=== PATIENT | female | born 1970 | race Caucasian/White ===

== ENCOUNTER 2020-07-09 16:02 | Emergency (ER) | payer MEDICAID, SELFPAY ==
[2020-07-09 16:22] VITALS: BP 142/97; PULSE 96; RESP 16; TEMP 36.5; O2SAT 95
--- NOTE | 2020-07-09 16:31 | NUR.NOTE ---
Nursing Note: PT reports that she just started taking insulin but does not know her dosages.
--- NOTE | 2020-07-09 16:39 | ED.GENADUL_ITS ---
Discharge Plan Disposition Patient Disposition: HOME Condition: Fair Discharge Details Clinical Impression: Cellulitis of hand Primary Care Provider: Perico Adamson ED Provider: Marguerite Hollingsworth Home Meds and New Rx's Prescriptions: New cephalexin [Keflex] 500 mg capsule 500 mg PO BID Qty: 14 RF: 0 sulfamethoxazole-trimethoprim [Bactrim DS] 800-160 mg tablet 1 tab PO BID Qty: 14 RF: 0 Continued ibuprofen 800 mg Tablet 800 mg PO DAILY RF: 0 clonazepam 1 mg Tablet 1 mg PO DAILY RF: 0 omeprazole 40 mg Capsule,Delayed Release(Dr/Ec) 40 mg PO DAILY RF: 0 lithium carbonate 300 mg Capsule 900 mg PO DAILY RF: 0 aripiprazole [Abilify] 10 mg Tablet 10 mg PO DAILY RF: 0 Victoza 3-Jax 0.6 mg/0.1 mL (18 mg/3 mL) Pen Injector SUBCUT RF: 0 Discharge Instructions Instructions: Cellulitis (ED) Additional Instructions: I am concerned that you have a skin infection. Please take your antibiotics as prescribed. Even if symptoms improve, please take the entire course. You may use Tylenol and/or ibuprofen as needed for discomfort. Please take as directed on the bottles. I would like you to follow-up with your primary care in the next 48 to 72 hours. Please call primary care tomorrow to schedule follow-up appointment. You may continue use the brace to help with discomfort. Elevate your hand to help with swelling. Please wear gloves when you are at work. Wash with soap and water. If you develop fever/chills, spreading of the redness outside of the marked areas, increased pain or the new/worsening symptoms please seek care urgently once again. Referrals: Perico Adamson [Primary Care Provider] - Discharge Data Discharge Date/Time-TO BE ENTERED AT DEPARTURE: 07/09/20 19:15 Medical Decision Making Patient is a 50-year-old female presented with chief complaint of left hand pain. She reports that pain began approximately 3 weeks ago and is progressively been increasing. She states that she noted some swelling and redness to the thumb and index finger. Patient is right-hand dominant. She denies any trauma. 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 Reports up-to-date on i mmunizations, tetanus is up-to-date. On exam, she appears nontoxic. Patient is a fairly poor historian. Exam of the left hand shows erythema and warm to the thumb and index finger really over the dorsal aspect of the left hand. Fairly ill-defined borders. Not appreciate this is much on the palmar side. She has a has swelling which is maximal over the MCP and PIP joint of the left index finger. I am able to passively move all of her joints well without any evidence of discomfort or tenderness involvement. She does have a small 5 mm laceration to the distal aspect of the left thumb as well as a healing pinpoint scab over the dorsal side of the PIP joint of the left index finger. As this is an atraumatic onset, I am primarily concerned for infection. At this time, I do not objectively note any evidence to suggest bony or tenderness or other deep space infection. Two-point discrimination is intact.. Primarily concern for cellulitis. She has been denying any fevers. However, given its location and the patient's poor history, I do feel that labs and imaging would be appropriate. I discussed this plan with the patient . X-ray reviewed by radiologist FINDINGS: Bones/joints: Arthrosis is seen as loss of joint space and marginal osteophyte formation involving the left thumb carpometacarpal articulation and multiple interphalangeal articulations. No acute fracture detected. Soft tissues: Mild suspected soft tissue swelling seen diffusely throughout the left hand. 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 Patient has a leukocytosis with a white count of 14. Glucose is 176, patient reports baseline for her. Her ESR and CRP are normal. Patient will be started on antibiotics. I am concerned for potential MRSA risk factors the patient does have a history of IVDU. Will cover as such. I encourage close follow-up with her primary care and have asked that she have this reassessed in the next few days. Strict return precautions were given. Advised that she elevate. We will place her in a thumb spica splint to help with discomfort. All of her questions and concerns were addressed and she is in agreement this plan. HPI General Mode of arrival: ambulatory . Date/Time Provider Initiated Documentation: 07/09/20 16:06 . Limitations to Documentation: no limitations . Information obtained by: patient and RN notes reviewed . History of Present Illness 50 year old F presents to the emergency department with the chief complaint of left hand pain, swelling, erythema, described as severe, with intensity rated at 8. Quality is described as aching, and is localized to the left and upper extremity. Patient reports no radiation. Patient started experiencing this week(s) (3) and it has been constant. Immobilization improves symptom(s), Movement worsens symptoms . Patient notes no other symptoms.. Patient did receive the following treatments prior to arrival, none Related Data Home Medications Medication Instructions Recorded Confirmed Victoza 3-Jax mg SUBCUT 07/09/20 aripiprazole [Abilify] 10 mg PO DAILY 07/09/20 07/09/20 cephalexin [Keflex] 500 mg PO BID #14 cap 07/09/20 clonazepam 1 mg PO DAILY 07/09/20 07/09/20 ibuprofen 800 mg PO DAILY 07/09/20 07/09/20 lithium carbonate 900 mg PO DAILY 07/09/20 07/09/20 omeprazole 40 mg PO DAILY 07/09/20 07/09/20 sulfamethoxazole-trimethoprim 1 tab PO BID #14 tab 07/09/20 [Bactrim DS] Previous Rx's Medication Instructions Recorded cephalexin [Keflex] 500 mg PO BID #14 cap 07/09/20 sulfamethoxazole-trimethoprim 1 tab PO BID #14 tab 07/09/20 [Bactrim DS] Allergies Allergy/AdvReac Type Severity Reaction Status Date / Time olanzapine [From Zyprexa] Allergy Unverified 07/09/20 16:26 paroxetine [From Paxil] Allergy Unverified 07/09/20 16:26 General Stated Complaint: Orthopedic BERNADINE: 4 Review of Systems Constitutional Constitutional: Reports as per HPI, Denies chills, Denies fever(s), Denies headache(s) and Denies weakness ENT Ears, Nose, Mouth, and Throat: Denies headache(s) Cardiovascular Cardiovascular: Reports as per HPI Respiratory Respiratory: Reports as per HPI and Denies cough Musculoskeletal Musculoskeletal: Reports as per HPI and Reports tingling Integumentary/Breasts Skin/Breast: Reports as per HPI, Reports erythema, Denies rash, Reports skin pain, Reports skin swelling and Reports wounds (has small laceration to left thumb, puncture to left index) Neurologic Neurologic: Reports as per HPI, Denies headache(s), Reports tingling, Reports paresthesias and Denies weakness [facility] Social History (Reviewed 07/09/20 @ 17:28 by HAYES Stearns Smoking/Tobacco Use Status: Current every day Tobacco Type: cigarettes Years smoked: 15 Alcohol Intake: never Drug use: Socially Substance use type: marijuana Do you feel safe at home: Yes Do you feel safe in your relationship?: Yes Exam Const General: cooperative, healthy appearing, comfortable, no acute distress, well developed and well groomed Nutritional Appearance: well nourished and obese Orientation: alert and awake Resp Effort & Inspection: normal respiratory effort, able to speak in complete sentences and no respiratory distress Cardio Rate: regular rate Rhythm: regular rhythm Skin General skin exam: erythema Trauma: laceration and puncture Neuro General: patient alert and patient awake Cognition: normal cognition Speech: speech normal Gait: normal gait Motor: muscle tone normal throughout Sensory Exam: no sensory deficits noted Extrem Hand/finger images: 1. area of erythema and swelling. Pain with palpation. Passive ROM allowed, limited full flexion secondary to swelling. No pain with axial thumb loading. Psych Appearance: grossly normal and well kempt Mental Status: mental status grossly normal Speech and Movement: speech and movement normal Course Vital Signs Vital signs: Vital Signs Temperature 36.5 C 07/09/20 16:22 Pulse 96 H 07/09/20 16:22 Respiratory Rate 16 07/09/20 16:22 Blood Pressure 142/97 H 07/09/20 16:22 Pulse Oximetry 95 07/09/20 16:22 Temperature 36.5 C 07/09/20 16:22 Temperature Source Tympanic 07/09/20 16:22 Pulse 96 H 07/09/20 16:22 Respiratory Rate 16 07/09/20 16:22 Respiratory Effort Non-Labored 07/09/20 16:24 Blood Pressure 142/97 H 07/09/20 16:22 Blood Pressure Position Sitting 07/09/20 16:22 Pulse Oximetry 95 07/09/20 16:22 Oxygen Delivery Method Room Air 07/09/20 16:22 Oxygen Flow Rate 0 07/09/20 16:22 Pain Level 8 07/09/20 16:22
--- NOTE | 2020-07-09 17:00 | DI.RAD_ITS ---
EXAM: XR HAND LT COMPLETE CLINICAL HISTORY: atraumatic swelling, erythma to index and thumb. TECHNIQUE: 2D digital imaging was performed. COMPARISON: No exams were available for comparison FINDINGS: BONES: No acute fracture is present. No bony destructive lesion is seen. JOINTS: No dislocation present. Degenerative changes are seen in the hand characterized by joint spac e narrowing and periarticular osteophytes. SOFT TISSUE: Mild diffuse soft tissue swelling of the hand. IMPRESSION: 1. No acute fracture or dislocation. 2. Degenerative changes of the hand. DATA REPOSITORY: RADIATION DOSE DELIVERED:
[2020-07-09 17:45] LABS: Abs Immature Grans 0.05 10^3/uL (0.0-0.06); Absolute Basophil Count 0.08 10^3/uL (0.0-0.2); Absolute Eosinophil Count 0.31 10^3/uL (0.0-0.7); Absolute Lymphocyte Count 3.55 10^3/uL (1.2-3.4); Absolute Monocyte Count 0.73 10^3/uL (0.1-0.8); Basophils % 0.6; Eosinophils % 2.2; HCT 40.3 % (36.0-46.0); HGB 12.9 g/dL (11.2-15.7); Immature Grans % 0.4; Lymphocytes % 25.2; MCH 27.7 pg (27.0-33.0); MCV 86.7 fL (80-95); MPV 10.3 fL (8.0-11.0); Monocytes % 5.2; Neutrophils % 66.4; Nucleated RBC 0 %; Platelet Count 280 10^3/uL (130-400); RBC 4.65 10^6/uL (3.93-5.22); RDW 13.3 % (11.7-14.6); WBC 14.09 10^3/uL (4.4-10.8)
[2020-07-09 17:55] LABS: Absolute Neutrophil Count 9.36 10^3/uL (1.2-6.7)
[2020-07-09 18:08] VITALS: BP 125/78; PULSE 80; RESP 15; O2SAT 95
[2020-07-09 18:09] LABS: ALT 22 U/L (14-59); Albumin 3.8 g/dL (3.4-5.0); Alkaline Phosphatase 109 U/L (46-116); Anion Gap 10.7 mmol/L (3-11); BUN 11 mg/dL (7-18); Bilirubin, Total 0.2 mg/dL (0.2-1.0); C-Reactive Protein 0.15 mg/dL (0.0-0.3); CO2 23.3 mmol/L (21.0-32.0); CREATININE 0.82 mg/dL (0.55-1.02); Calcium 9.2 mg/dL (8.5-10.1); Chloride 102 mmol/L (98-107); Glucose 173 mg/dL (74-106); Sodium 136 mmol/L (136-145); Total Protein 7.4 g/dL (6.4-8.2)
--- NOTE | 2020-07-09 18:17 | DI.VRAD_ITS ---
PROCEDURE INFORMATION: Exam: XR Left Hand Exam date and time: 07/09/2020 5:53 PM Age: 50 years old Clinical indication: Swelling; Hand; Left TECHNIQUE: Imaging protocol: XR Left hand. Views: 3 or more views. COMPARISON: No relevant prior studies available. FINDINGS: Bones/joints: Arthrosis is seen as loss of joint space and marginal osteophyte formation involving the left thumb carpometacarpal articulation and multiple interphalangeal articulations. No acute fracture detected. Soft tissues: Mild suspected soft tissue swelling seen diffusely throughout the left hand. 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 Dictated and Authenticated by: Brian Mccray MD. Ordering:DIMPLE Everett MD
[2020-07-09 18:22] LABS: AST < 5 U/L (15-37)
[2020-07-09 18:52] LABS: ESR 11 mm/hr (0-20)
[2020-07-09 19:17] VITALS: BP 128/85; PULSE 81; RESP 16; O2SAT 95
== END 2020-07-09 19:15 | disposition home or self-care (01) ==
PROVIDERS: Emergency Provider Physician Assistant; PCP Family Medicine
DX: L03.114 Cellulitis of left upper limb (principal)
CPT/HCPCS: 29125; 36415; 80053; 85027; 85652; 99284; 73130; 85025; 86140; 99283; L3807

== ENCOUNTER 2021-05-19 13:55 | Outpatient (CLI) | payer MEDICAID, SELFPAY ==
--- NOTE | 2021-05-19 11:15 | DI.RAD_ITS ---
Exam(s) XR FOOT RT LIMITED EXAM: XR FOOT RT LIMITED CLINICAL HISTORY: right foot pain. TECHNIQUE: 2D digital imaging was performed. Weightbearing lateral view was performed. COMPARISON: CR XR ANKLE COMPLETE MIN 3V RT from 03/13/2021 CR XR ANKLE COMPLETE MIN 3V RT from 03/13/2021 FINDINGS: There is a small plantar calcaneal spur. There degenerative changes greatest at the tarsal metatarsa l regions. The plantar arch is maintained. IMPRESSION: Degenerative changes and heel spur. DATA REPOSITORY: RADIATION DOSE DELIVERED:
== END 2021-05-19 13:56 | disposition home or self-care (01) ==
LOC: DIORS 13:55
PROVIDERS: PCP Family Medicine; Referring Provider Family Medicine; Visit Provider Physician Assistant
DX: M19.071 Primary osteoarthritis, right ankle and foot (principal); M77.31 Calcaneal spur, right foot
CPT/HCPCS: 73620

== ENCOUNTER 2021-07-22 00:50 | Outpatient (CLI) | payer MEDICAID, SELFPAY ==
--- NOTE | 2021-07-22 07:30 | DI.MRI_ITS ---
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 COMPARISON: CR,XR XR HAND LT COMPLETE from 07/09/2020 FINDINGS: MARROW/ARTICULATIONS:There are no fractures but there is prominent bone contusion-bone edema evident in the proximal half of the thumb metacarpal as well as the trapezium and there are significant degen erative changes in this joint including subarticular edema and multiple small degenerative subarticul ar cysts as well as marginal osteophytes. No true erosions evident. With respect of the metacarpophalangeal joint of the thumb, there is some mild degenerative change. N o evidence of ulnar collateral ligament tear. There is some narrowing of the medial aspect of the sheri nt with mild bone edema in the medial base of the proximal phalanx. There is no abnormal intraosseous signal evident within the trapezoid and 2nd metacarpal carpal nor i n the capitate and scaphoid-lunate. MUSCLES/TENDONS: no evidence of tendon tears or tenosynovitis of the flexor and extensor tendons of t he thumb. EXTRAMUSCULAR SOFT TISSUES: Small ganglia on noted on the opposite-medial aspect of hand-wrist adjace nt to the hamate. OTHER: None. IMPRESSION: 1. Significant osteoarthritic degenerative changes at the 1st carpometacarpal joint prominent subarti cular bone edema both sides the joint and degenerative subarticular cysts. No prominent joint effusio n nor para-articular ganglion at this level. 2. Mild degenerative changes also noted at the metacarpophalangeal joint of the thumb but without sig nificant bone edema and no evidence of ulnar collateral ligament tear. 3. There are no erosions evident. DATA REPOSITORY:
--- NOTE | 2021-07-22 12:05 | DI.MRI_ITS ---
Exam(s) MR LOWER JOINT RT WO EXAM: MR LOWER JOINT RT WO CLINICAL HISTORY: PAIN,SUBFIBULAR IMPINGEMENT,POSTERIOR TIBIAL TENDON DYSFUNCTION TECHNIQUE: Multiplanar multisequence MRI of the knee was performed. COMPARISON: CR XR FOOT RT LIMITED from 05/19/2021 FINDINGS: MARROW/ARTICULATIONS:There is multilevel marrow signal abnormality. There is an area of subarticular bone edema evident in the medial talar dome suspicious for combination of small degenerative subarti cular cysts and probable osteochondral defect without underlying hyperintense T2 line to suggest inst ability. The area of fact it measures 1.3 cm AP by 0.8 cm wide. There is no abnormal intraosseous s ignal in the lateral aspect of the talar dome nor in the overlying tibial plafond and there is no abn ormal bone edema within the malleoli. There is subarticular bone edema in the calcaneus subjacent to the mid and anterior aspect of the sub talar joint and sinus tarsi and extending into the base of the sustentacular talus. Also to the leve l of the calcaneocuboid joint although this signal abnormality is confined to the calcaneal side of t his joint and there is no joint effusion. There is some intraosseous edema also evident in the dista l talus medial aspect. There is relative sparing of the navicular bone. There is, however, bone mel ma evident in the distal aspects of all 3 cuneiform bones as well as the bases of the 2nd and 3rd met atarsals, these findings related to degenerative changes at these joints. There is no abnormal signa l at the base of the great toe metatarsal. Main Lisfranc ligament appears intact. No abnormal signa l seen within the bases of the 4th and 5th metatarsals. SINUS TARSI: There is loss of the normal fat signal within this space consistent with sinus tarsi syn drome. There is no evidence of sinus tarsi ganglion cyst. LIGAMENTS: The anterior and posterior tibiofibular ligaments are intact. The anterior talofibular ligament appears intact The posterior talofibular ligament appears intact The calcaneal fibular ligament appears intact The deltoid ligament appears intact PLANTAR FASCIA/HEEL PAD: Unremarkable. There is a 6 millimeter inferior calcaneal spur evident. TENDONS: The Achilles tendon appears unremarkable. The peroneus longus and brevis tendons on the lateral ankle appear unremarkable Flexor hallucis longus appears unremarkable. No tear nor tenosynovitis. Flexor digitorum longus appears unremarkable. No tear nor tenosynovitis. Tibialis posterior tendon inserts upon accessory ossicle adjacent to the navicular tuberosity, this m easuring a by 7 millimeters, without abnormal intraosseous signal within this sesamoid nor within the Vincent tuberosity. However, there is mild increased signal within the distal most tibialis posterio r tendon at this level. However, no tear Extensor tendons appear unremarkable. No tear nor tenosynovitis. IMPRESSION: 1. Multilevel findings as described individually above. 2. The tibialis posterior tendon exhibits some increased intrasubstance signal at its attachment to t he accessory ossicle just proximal to the navicular tuberosity. However, there is no intraosseous ed carolyn within this accessory ossicle nor within the navicular tuberosity. No evidence of obvious pes pl anus. The other tendons on both sides of the ankle appear unremarkable, as does the Achilles tendon (and plantar fascia). 3. Degenerative change and probable osteochondral defect on the medial aspect of the talar dome. 4. Sinus tarsi syndrome evident. 5. Intraosseous bone edema in the anterior calcaneus, distal medial talus, and cuneiform bones, cons istent with degenerative changes and sequelae of altered biomechanics. DATA REPOSITORY:
--- NOTE | 2021-07-22 16:30 | DI.VRAD_ITS ---
PROCEDURE INFORMATION: Exam: MR Right Lower Extremity Joint Without Contrast; Ankle Exam date and time: 07/22/2021 12:00 PM Age: 51 years old Clinical indication: Other: Pain; Patient HX: Subfibular impingement, posterior tibial tendon dysfunction TECHNIQUE: Imaging protocol: MR of the Right lower extremity without contrast. Exam focused on the ankle. COMPARISON: US EXTREMITY LOWER VENOUS RT 03/20/2021 10:03 AM FINDINGS: Bones and cartilage: There is a large osteochondral lesion of the medial talar dome consisting of subchondral bone marrow edema over region of 13 mm x 10 mm. There is moderate to large focus of bone marrow edema of the anterior calcaneus extending to the level of the angle of Gissane where there is also intraosseous cystic change. There is bone marrow edema of the intermediate and lateral cuneiform bones and the base of the 2nd and 3rd metatarsals likely due to chondrosis. Joint spaces: No joint effusion. LIGAMENTS: Distal tibiofibular syndesmosis: Unremarkable. No tear. Anterior talofibular ligament: Unremarkable. No tear. Posterior talofibular ligament: Unremarkable. No tear. Calcaneofibular ligament: Unremarkable. No tear. Deltoid ligament complex: Unremarkable. No tear. TENDONS: Tibialis posterior tendon: The posterior tibial tendon is intact. However, it is seen to attach to a type 2 os naviculare. The posterior tibial tendon is enlarged with increased intrasubstance signal near its attachment to the os naviculare, compatible with tendinosis. No evidence for os naviculare syndrome at this time. Peroneal tendons: Unremarkable as visualized. Extensor tendons of foot: Unremarkable as visualized. Tibialis anterior tendon: Unremarkable as visualized. Achilles tendon: Unremarkable as visualized. Tarsal canal (Sinus tarsi): There is signal alteration of the sinus tarsi demonstrating intermediate signal change on T1 sequence and increased signal change on STIR sequence. Tarsal tunnel: Unremarkable. Muscles: The abductor digiti minimi muscle is diminutive. Soft tissues: Unremarkable. Plantar fascia: Plantar fascia is unremarkable. IMPRESSION: 1. Intact posterior tibial tendon. However, the posterior tibial tendon attaches to a type 2 os naviculare where the tendon is enlarged with increased intrasubstance signal, compatible with tendinosis. No evidence for os naviculare syndrome at this time. 2. Large osteochondral lesion of the medial talar dome consisting of subchondral bone marrow edema. 3. Signal alteration of the sinus tarsi suggesting sinus tarsi syndrome. 4. Moderate to large focus of bone marrow edema and intraosseous cystic change of the anterior calcaneus. 5. Bone marrow edema of the intermediate and lateral cuneiform bones and the bases of the 2nd and 3rd metatarsals likely due to chondrosis. 6. Diminutive abductor digiti minimi muscle which can be seen with Lezama's neuropathy. Dictated and Authenticated by: Perico Gibson MD. Ordering:JULY Acosta MD
== END 2021-07-22 01:10 ==
PROVIDERS: PCP Family Medicine; Visit Provider Student in an Organized Health Care Education/Training Program
DX: M18.12 Unilateral primary osteoarthritis of first carpometacarpal joint, left hand (principal); M25.871 Other specified joint disorders, right ankle and foot; M21.41 Flat foot [pes planus] (acquired), right foot; M76.821 Posterior tibial tendinitis, right leg; D75.89 Other specified diseases of blood and blood-forming organs; M25.571 Pain in right ankle and joints of right foot
CPT/HCPCS: 73721; 73218